=== PATIENT | male | born 1955 | race Caucasian/White ===

== ENCOUNTER 2017-12-02 10:53 | Day surgery (SDC) | payer OTHER, SELFPAY ==
--- NOTE | 2017-12-02 | PATH_ITS ---
[facility] Accession Number: [id number] . 01 Material submitted: . PART A: TRANSVERSE COLON POLYP PART B: DESCENDING COLON POLYP . 02 Diagnosis: A. Transverse Colon Polyp: Hyperplastic polyp. . B. Descending Colon Polyps: Fragment of tubular adenoma and fragments of hyperplastic polyp. V/12/03/2017 . 02 Electronically signed: . Taz Guthrie MD, PhD, Pathologist NPI- [id number] . 01 Gross description: . Received are two formalin-filled containers, both labeled with the patient's name: . A. In a container labeled transverse colon polyp, the specimen consists of a 0.3 cm portion of tissue, entirely submitted in cassette A. B. In a container labeled descending colon polyp, the specimen consists of two 0.1-0.6 cm portions of tissue, entirely submitted in cassette B. ([id number]) /FRR . 02 Pathologist provided ICD-10: D12.4, K63.5 . 02 CPT . 863381, 691222 Performed at: 01 [facility] [address] [facility], [place], [place] [id number] MD Juan A Paiz MD Phone: [phone] Performed at: 02 [facility] [address] [place], [place] [id number] MD Shivam Garcia MD Phone: [phone]
[2017-12-02 11:07] VITALS: BP 130/77; PULSE 77; RESP 16; TEMP 36.5; O2SAT 95; BMI 25.0
[2017-12-02] MEDS: SODIUM CHLORIDE 0.9% 1,000 ML 70 ML IV (11:16)
--- NOTE | 2017-12-02 11:35 | PM.HP.1 ---
History of Present Illness Date Patient Seen: 12/02/17 Chief complaint: [id number] Narrative: The patient is a 62-year-old male with a history of colon polyps who [facility]. The patient states that his initial colonoscopy in his early 50s showed a mass in the colon which was removed by segmental resection. He was told that this was not cancer. I do not have an operative report or pathology available Patient History Family & Social History Social History: household members spouse Meds Home Medications Medication Instructions Recorded Confirmed Type aspirin 81 mg PO DAILY 12/02/17 12/02/17 History atorvastatin 20 mg PO DAILY 12/02/17 12/02/17 History ferrous sulfate 324 mg PO DAILY 12/02/17 12/02/17 History [id number]-S7-Gnveoufec serr 1 tab PO QAM 12/02/17 12/02/17 History [Glucosamine Daily Complex] multivitamin [Multiple Vitamins] 1 tab PO DAILY 12/02/17 12/02/17 History Allergies Allergy/AdvReac Type Severity Reaction Status Date / Time No Known Drug Allergies Allergy Verified 12/02/17 11:06 Review of Systems Review of Systems All systems reviewed & are unremarkable except as noted in HPI and below Exam Vital Signs (past 8 hours): - 12/02/17 11:07 Temperature 97.7 F Pulse Rate 77 Respiratory Rate 16 Blood Pressure 130/77 H Pulse Oximetry 95 Oxygen Delivery Method Room Air Narrative Exam Narrative: General: Patient is well developed, not in apparent distress Cardiovascular: Regular rate and rhythm, no murmurs, rubs, or gallops; no evidence of edema; no palpable abdominal aortic aneurysm Gastrointestinal: Normoactive bowel sounds, soft, nontender, nondistended, no rebound tenderness, no hepatosplenomegaly, no evidence of hernia; positive surgical scar Assessment & Plan Plan: Assessment/Plan Narrative: 62-year-old male with a history of colon mass status post resection, colon polyps on previous colonoscopy who is here for polyp surveillance. No active GI symptoms at present Regarding the procedure(s), the risks and potential complications, benefits, and alternatives (including not doing the procedure) were discussed with the patient. The risks include but are not limited to bleeding, infection, perforation which may require surgical intervention, missed lesions, and adverse reactions to sedative medicines. After a question and answer period, the patient agreed to proceed with the procedure(s).
--- NOTE | 2017-12-02 11:38 | P.HP_ITS ---
History of Present Illness Date Patient Seen: 12/02/17 Chief complaint: [id number] Narrative: The patient is a 62-year-old male with a history of colon polyps who [facility]. The patient states that his initial colonoscopy in his early 50s showed a mass in the colon which was removed by segmental resection. He was told that this was not cancer. I do not have an operative report or pathology available Patient History Family & Social History Social History: household members spouse Meds Home Medications Medication Instructions Recorded Confirmed Type aspirin 81 mg PO DAILY 12/02/17 12/02/17 History atorvastatin 20 mg PO DAILY 12/02/17 12/02/17 History ferrous sulfate 324 mg PO DAILY 12/02/17 12/02/17 History fispjthcgpl-Q2-Xnvwwgfpz serr 1 tab PO QAM 12/02/17 12/02/17 History [Glucosamine Daily Complex] multivitamin [Multiple Vitamins] 1 tab PO DAILY 12/02/17 12/02/17 History Allergies Allergy/AdvReac Type Severity Reaction Status Date / Time No Known Drug Allergies Allergy Verified 12/02/17 11:06 Review of Systems Review of Systems All systems reviewed & are unremarkable except as noted in HPI and below Exam Vital Signs (past 8 hours): - 12/02/17 11:07 Temperature 97.7 F Pulse Rate 77 Respiratory Rate 16 Blood Pressure 130/77 H Pulse Oximetry 95 Oxygen Delivery Method Room Air Narrative Exam Narrative: General: Patient is well developed, not in apparent distress Cardiovascular: Regular rate and rhythm, no murmurs, rubs, or gallops; no evidence of edema; no palpable abdominal aortic aneurysm Gastrointestinal: Normoactive bowel sounds, soft, nontender, nondistended, no rebound tenderness, no hepatosplenomegaly, no evidence of hernia; positive surgical scar Assessment & Plan Plan: Assessment/Plan Narrative: 62-year-old male with a history of colon mass status post resection, colon polyps on previous colonoscopy who is here for polyp surveillance. No active GI symptoms at present Regarding the procedure(s), the risks and potential complications, benefits, and alternatives (including not doing the procedure) were discussed with the patient. The risks include but are not limited to bleeding, infection, perforation which may require surgical intervention, missed lesions, and adverse reactions to sedative medicines. After a question and answer period, the patient agreed to proceed with the procedure(s).
--- NOTE | 2017-12-02 11:38 | P.DS_ITS ---
History of Present Illness Chief complaint: [id number] Narrative: The patient is a 62-year-old male with a history of colon polyps who had a colonoscopy 5 years ago and [place] with polyps. The patient states that his initial colonoscopy in his early 50s showed a mass in the colon which was removed by segmental resection. He was told that this was not cancer. I do not have an operative report or pathology available Discharge Providers Primary care physician: Josh Trammell MD Discharge provider: Clyde Olivares MD Exam Vital Signs (past 8 hours): - 12/02/17 11:07 Temperature 97.7 F Pulse Rate 77 Respiratory Rate 16 Blood Pressure 130/77 H Pulse Oximetry 95 Oxygen Delivery Method Room Air Narrative Exam Narrative: General: Patient is well developed, not in apparent distress Cardiovascular: Regular rate and rhythm, no murmurs, rubs, or gallops; no evidence of edema; no palpable abdominal aortic aneurysm Gastrointestinal: Normoactive bowel sounds, soft, nontender, nondistended, no rebound tenderness, no hepatosplenomegaly, no evidence of hernia; positive surgical scars Discharge Plan Discharge Plan Patient Disposition: Home, Self-Care Discharge comment: Remove IV prior to discharge Discharge to home once criteria are met (positive flatus, stable vital signs, no abdominal pain, tolerating p.o.) Discharge Med Rec/Prescriptions Prescriptions: Continue multivitamin [Multiple Vitamins] Tablet 1 tab PO DAILY RF: 0 atorvastatin 20 mg Tablet 20 mg PO DAILY RF: 0 aspirin 81 mg Tablet,Chewable 81 mg PO DAILY RF: 0 ferrous sulfate 324 mg (65 mg iron) Tablet,Delayed Release (Dr/Ec) 324 mg PO DAILY RF: 0 qwipmtauvdd-A2-Vqunouevd serr [Glucosamine Daily Complex] 1,500-400-100 mg- unit-mg Tablet 1 tab PO QAM RF: 0 Discharge Orders: Discharge (Order); Ordered 12/02/17 Ordered By: Clyde Olivares Provider Discharge Instructions Diet: Diet as Tolerated Visit Report/Discharge Packet Stand Alone Forms: Colonoscopy Result, Surgery Discharge Discharge Data Primary Care Provider: Josh Trammell Attending Provider: Clyde Olivares
--- NOTE | 2017-12-02 11:38 | PM.OP.ENDO ---
Operative Date/Time/Diagnoses Date of procedure: 12/02/17 Time of procedure: 11:38 Procedure Notes Procedure in detail: Surgeon: Clyde Olivares MD Procedure: Colonoscopy with snare polypectomy Preoperative diagnosis: History of colon polyps Postoperative diagnosis: 3 colon polyp status post polypectomy, colon colonic anastomosis, grade 2 internal hemorrhoids Medications: Conscious sedation using 6 mg IV of Midazolam and 100 mcg IV of Fentanyl Preanesthesia Assessment An H and P was performed/updated and the Px?s ASA class is 2. The procedure was discussed in detail with the patient. The potential risks and complications including infection, bleeding, missed lesions, perforation, need for surgery in case of perforation, prolonged hospital stay, and were explained. A brief question and answer period was allotted and once all questions were answered, informed consent was obtained. The patient was brought back to the procedure room and placed on standard monitoring. The patient?s vital signs were monitored continuously throughout the entire procedure. Prior to starting, a timeout was performed to confirm the patient?s identity, allergies, medications, and procedure. Procedure in detail The patient was placed in left lateral decubitus position and once adequate sedation was obtained a JENIFER was performed. The digital rectal exam did not reveal any palpable lesions. The tip of the colonoscope was placed in the anal canal and advanced without difficulty all the way to the cecum which was identified by the appendiceal orifice and ileocecal valve. The terminal ileum was intubated for distance of 5 cm with no evidence of mucosal abnormalities. The colonoscope was brought back to the cecum and careful examination of all padilla of the colon was performed with irrigation of any residual stool. There were a total of 3 polyps visualized. One was in the transverse colon measuring 5 mm and was sessile. This was removed in its entirety by means of cold snare with minimal bleeding. The other 2 polyps were visualized in the descending colon and measured 4 and 7 mm respectively. These were both removed by means of cold snare with minimal bleeding. All polyps were retrieved. Careful examination of the remainder of the colon revealed an end-to-side colocolonic anastomosis at approximately 30 cm from the anal verge. The anastomosis appeared healthy. Retroflexion was performed in the colon which revealed grade 2 internal hemorrhoids The patient tolerated the procedure well and will be brought back to the recovery area to be discharged once criteria are met. The prep was judged to be good/excellent and adequate to identify polyps less than 5 mm. The withdrawal time was 11 min. The total procedure time from initial sedation was 23 min. Complications There were no complications and estimated blood loss was minimal. Recommendations: Resume previous diet Continue outPx medications Follow up pathology results Repeat colonoscopy in 3 or 5 years depending on pathology results An emergency contact number was given to the patient for any complications related to the procedure
[2017-12-02] MEDS: MIDAZOLAM 5 MG/5 ML VIAL IV (11:45)
[2017-12-02] MEDS: fentaNYL 250 MCG/5 ML INJ IV (11:47)
[2017-12-02 11:59] VITALS: BP 95/58; PULSE 67; RESP 14; TEMP 36.3; O2SAT 97
[2017-12-02 12:04] VITALS: BP 99/67; PULSE 64; RESP 17; O2SAT 94
[2017-12-02 12:09] VITALS: BP 106/70; PULSE 58; RESP 16; O2SAT 96
[2017-12-02 12:15] VITALS: BP 105/68; PULSE 64; RESP 20; TEMP 36.2; O2SAT 94
== END 2017-12-02 12:49 | disposition home or self-care (01) ==
PROVIDERS: Visit Provider Internal Medicine Gastroenterology
PROC: 0DJD8ZZ Inspection of Lower Intestinal Tract, Via Natural or Artificial Opening Endoscopic (ICD-10-PCS; CPT 45378; principal; 2017-12-02 12:30)
DX: Z86.010 Personal history of colon polyps (principal); K64.1 Second degree hemorrhoids; D12.4 Benign neoplasm of descending colon; D12.3 Benign neoplasm of transverse colon
CPT/HCPCS: 45385; J2250; J3010